=== PATIENT | female | born 1960 | race Caucasian/White ===

== ENCOUNTER 2022-12-29 10:01 | Outpatient (CLI) | payer OTHER ==
[2022-12-29 10:31] LABS: CREATININE,URINE 240.6 mg/dL; MICROALBUM/CREATININE RATIO,UR 16.2 ug/mg (<30.0); MICROALBUMIN,URINE 3.9 mg/dL (0-300.0)
[2022-12-29 10:34] LABS: CHOL/HDL RATIO 2.1 (<4.4); CHOLESTEROL 267 mg/dL; GLUCOSE 108 mg/dL (70-100); HDL CHOLESTEROL 125 mg/dL; LDL CHOLESTEROL,CALCULATED 132 mg/dL; LDL/HDL RATIO 1.1 (<4.4); TRIGLYCERIDES 49 mg/dL; VLDL CHOLESTEROL 10 mg/dL
[2022-12-29 11:27] LABS: ESTIMATED AVERAGE GLUCOSE 114 mg/dL (70-100); HEMOGLOBIN A1c% 5.6 % (4.27-6.07)
== END 2022-12-29 10:02 | disposition home or self-care (01) ==
LOC: LAB 10:01
PROVIDERS: ATTEND Internal Medicine Geriatric Medicine
DX: E78.5 Hyperlipidemia, unspecified (principal); R73.01 Impaired fasting glucose
CPT/HCPCS: 36415; 80061; 82043; 82570; 82947; 83036; 83721